=== PATIENT | female | born 1985 | race Caucasian/White ===

== ENCOUNTER → 2020-01-07 | Outpatient (CLI) | payer OTHER ==
[2020-01-07 14:30] LABS: T4(THYROXINE) 9.1 ug/dL (4.7-13.3)
== END | disposition home or self-care (01) ==
LOC: MA 12:18
PROVIDERS: ATTEND Obstetrics & Gynecology
PROC: BH02ZZZ Plain Radiography of Bilateral Breasts (ICD-10-PCS; principal; 2020-01-07)
PROC: BH42ZZZ Ultrasonography of Bilateral Breasts (ICD-10-PCS; 2020-01-07)
DX: N64.3 Galactorrhea not associated with childbirth (principal)
CPT/HCPCS: 76641; 77066; 84402; 84403